=== PATIENT | female | born 1960 | race Caucasian/White ===

== ENCOUNTER 2018-03-01 14:50 | Emergency (ER) | payer OTHER ==
[~2018-03-01] VITALS: Ht 176.5 cm; Wt 68.2 kg
[~2018-03-01 14:50] MED LIST: ALENDRONATE70 MG PO; APAP OR; CALCIUM + D PO; HYDROCO OR; LEVOTHYROXIN75 MC1 PO; LOVASTATIN20 M1 OR; MEDROXYPR AC10 M1 PO; NADOLOL20 MG OR; PROVERA10 MG PO; ROBAXIN250 MG OR; SYNTHROID125 MCG OR; SYNTHROID88 MCG PO; TRAMADOL HCL50 MG PO; ULTRAM50 M1 PO; VAGIFEM10 MCG VA; VITAMIN D2 PO; VITAMIN D31000 UNI1 PO; ZOFRAN ODT4 MG OR
[2018-03-01 15:53] LABS: HEMATOCRIT 39.2 % (37.0-47.0); HEMOGLOBIN 13.4 g/dl (12.0-16.0); IMMATURE GRANULOCYTES 0.2 % (0.0-5.0); MEAN CELL VOLUME 93.1 fL CALC (80.0-100.0); MEAN CORPUSCULAR HGB 31.8 pG CALC (26.0-32.0); MEAN CORPUSCULAR HGB CONC 34.2 g/L CALC (32.0-36.0); NEUT# 3.58 thou/uL (2.00-7.15); RED BLOOD COUNT 4.21 mill/uL (4.20-5.60); RED CELL DISTRI WIDTH 12.8 % (11.5-15.5)
[2018-03-01 16:10] LABS: ANION GAP 13 (6-22 (CALC)); BUN 17 mg/dL (7-17); BUN/CREATININE RATIO 19 (12-20 (CALC)); CARBON DIOXIDE 30 mmol/l (22-30); CHLORIDE 103 mmol/l (95-108); CREATININE 0.9 mg/dL (0.5-1.0); GFR > 60 ML/MIN (>=60 (CALC)); GFR FOR AFR.AMER. > 60 ML/MIN (>=60 (CALC)); SODIUM 141 mmol/l (137-146)
[2018-03-01 17:16] VITALS: BP 112/58
[2018-03-01 17:25] LABS: TSH, 3RD GENERATION 9.89 uIU/mL (0.47 - 4.68)
== END 2018-03-01 17:28 | disposition home or self-care (01) | DRG 310 ==
LOC: ED 14:50
PROVIDERS: Family Medicine
DX: I48.91 Unspecified atrial fibrillation (principal); I10 Essential (primary) hypertension; E78.5 Hyperlipidemia, unspecified
CPT/HCPCS: J1644